=== PATIENT | female | born 1985 | race Caucasian/White ===

== ENCOUNTER 2016-10-03 14:35 | Inpatient (IN) | payer BC ==
--- NOTE | ~2016-10-03 | DS ---
Unit #: [id number] #: [id number] Patient: SATINDER ARGUETA [id number] [facility] [address] [place] [address] [id number] MR#: [id number] NAME: SATINDER ARGUETA. ROOM: [facility] Age: 30 Sex: F Admission Date: 10/03/2016 : 1985 Discharge Date: 10/08/2016 Attending Physician: Anderson Mccoy M.D. Primary Care Physician: Primary Care Physician No DISCHARGE SUMMARY REASON FOR ADMISSION Suicidal ideation. DIAGNOSTIC STUDIES LABORATORY RESULTS: Unremarkable. HOSPITAL COURSE The patient was admitted to inpatient unit on 10/03/2016 and discharged on 10/08/2016. The patient was treated on the inpatient unit with group therapy, individual therapy, and medication management. The patient responded well with the above modalities of treatment and following medications. DISCHARGE MEDICATIONS Celexa 20 mg daily for depression, Vistaril 25 mg t.i.d. for anxiety, and Desyrel 50 mg at bedtime for sleep. DISCHARGE DIAGNOSES Psychiatric: 1. Major depressive disorder, recurrent, F33.2. 2. Alcohol use disorder, mild, F10.20. Secondary diagnosis: Deferred. Medical diagnosis: None. Stressors: Psychosocial stressors. DISCHARGE INSTRUCTIONS The patient is to follow up in outpatient clinic as per social services aide. CONDITION ON DISCHARGE The patient was pleasant and cooperative. Denied any psychotic symptom or any suicidal ideation. PROGNOSIS Guarded. DIET AND ACTIVITY As tolerated. Dictated by... Anderson Mccoy M.D. Unit #: [id number] #: [id number] Patient: SATINDER ARGUETA SZC/modl TD: 10/08/2016 17:41 JOB #: [id number] DISCHARGE SUMMARY Page 1 of 1 X Anderson Mccoy MD X DISCHARGE SUMMARY
--- NOTE | ~2016-10-03 | PN ---
Unit #: [id number] #: [id number] Patient: SATINDER RAI [id number] [facility] [address] [place] [address] [id number] MR#: [id number] NAME: SATINDER RAI. ROOM: [facility] Age: 30 Sex: F Admission Date: 10/03/2016 : 1985 Attending Physician: Anderson Mccoy M.D. Admitting Physician: Anderson Mccoy M.D. Primary Care Physician: Primary Care Physician Vivien PALMER NOTES DATE 10/04/2016 DISCUSSION Satinder Rai is a 30-year-old female, seen on 10/04/2016. The patient interviewed, chart reviewed, and obtained information from the nursing staff. The patient was tearful, sad, dysphoric, anxious, nervous and the patient reported not sleeping, withdrawn, isolative, guarded. REVIEW OF SYSTEMS Complete review of systems unremarkable. MENTAL STATUS EXAMINATION General appearance: Patient dressed casually. Attention span and concentration, fair. Oriented to place and person. Mood and affect, sad, depressed. Speech, monotone. Thought process, concrete. The patient denied any thoughts of harming self or others but guarded. Recent and remote memory, poor. Insight and judgment, poor. DIAGNOSIS Major depressive disorder, recurrent. ASSESSMENT/PLAN Advised to continue with the current medication and therapeutic protocol and if needed consider further adjustment of medication. Dictated by... Ivan Ramos/bret TD: 10/06/2016 07:55 JOB #: [id number] Unit #: [id number] #: [id number] Patient: SATINDER RAI JOHN PALMER NOTES Page 1 of 1 X Anderson Mccoy MD NOTE
--- NOTE | ~2016-10-03 | PN ---
Unit #: [id number] #: [id number] Patient: SATINDER RAI [id number] [facility] [address] [place] [address] [id number] I MR#: [id number] NAME: SATINDER RAI. ROOM: P257 Age: 30 Sex: F Admission Date: 10/03/2016 : 1985 Attending Physician: Anderson Mccoy M.D. Admitting Physician: Anderson Mccoy M.D. Primary Care Physician: Primary Care Physician Vivien LOPEZ PROGRESS NOTES DATE 10/06/2016 DISCUSSION Satinder Rai is a 30-year-old female, seen on 10/06/2016. The patient interviewed, chart reviewed, and obtained information from the nursing staff. The patient was compliant and cooperative. Reports mood is getting better, decrease in anxiety. VITAL SIGNS: Stable, 98.4, 109, 18, and 113/78. The patient is still having problem with the mood lability, but able to contract for safety. REVIEW OF SYSTEMS Complete review of systems unremarkable. MENTAL STATUS EXAMINATION General appearance: Patient dressed casually. Attention span and concentration, fair. Oriented to place and person. Mood and affect, sad and depressed. Speech, monotone. Thought process, concrete. The patient denied any thoughts of harming self or others but sad and depressed, withdrawn, isolative. Recent and remote memory, poor. Insight and judgment, poor. DIAGNOSIS Major depressive disorder, recurrent. ASSESSMENT/PLAN Advised to continue with the current medication and therapeutic protocol and if needed consider further adjustment of medication. Dictated by... Ivan Ramos/bret TD: 10/08/2016 08:59 JOB #: [id number] Unit #: [id number] #: [id number] Patient: SATINDER RAI PEASANDY PROGRESS NOTES Page 1 of 1 X Anderson Mccoy MD PROGRESS NOTE
--- NOTE | ~2016-10-03 | PN ---
Unit #: [id number] #: [id number] Patient: SATINDER RAI [id number] [facility] [address] [place] [address] [id number] I MR#: [id number] NAME: SATINDER RAI. ROOM: [facility]7 Age: 30 Sex: F Admission Date: 10/03/2016 : 1985 Attending Physician: Anderson Mccoy M.D. Admitting Physician: Anderson Mccoy M.D. Primary Care Physician: Primary Care Physician Vivien LOPEZ PROGRESS NOTES DATE OF SERVICE 10/07/2016 DISCUSSION Satinder Rai is a 30-year-old female seen on 10/07/2016. The patient interviewed, chart reviewed. Obtained information from nursing staff. The patient was compliant, cooperative. Mood sad, dysphoric. Reports making progress. Denied any thoughts of harming self or others. Complete Review of Systems: Unremarkable. MENTAL STATUS EXAMINATION General Appearance: The patient dressed casually. Attention span, concentration: Fair. Oriented in place and person. Mood and affect brighter. Speech: Regular rate. Thought process: Goal-directed. The patient denied any thoughts of harming self or others or any psychotic symptom. Recent and remote memory: Poor. Insight and judgment: Poor. DIAGNOSIS Mood disorder not otherwise specified. ASSESSMENT/PLAN Advised to continue with current medication and therapeutic protocol. If needed, consider further adjustment of medication. Dictated by... Ivan Ramos/rigoberto TD: 10/09/2016 09:11 JOB #: [id number] Unit #: [id number] #: [id number] Patient: SATINDER RAI PROGRESS NOTES Page 1 of 1 X Anderson Mccoy MD PROGRESS NOTE
--- NOTE | ~2016-10-03 | HP ---
Unit #: [id number] #: [id number] Patient: SATINDER ARGUETA N [id number] [place] [address] [id number] MR#: [id number] NAME: SATINDER ARGUETA. ROOM: [facility]7 Age: 30 Sex: F Admission Date: 10/03/2016 : 1985 Attending Physician: Anderson Mccoy M.D. Admitting Physician: Anderson Mccoy M.D. Primary Care Physician: Primary Care Physician No HISTORY AND PHYSICAL HISTORY OF PRESENT ILLNESS Satinder is a 30-year-old female admitted to [address] [place] [address] for depression and attempted overdose on Tylenol and alcohol. PAST MEDICAL HISTORY None. PAST SURGICAL HISTORY None. SOCIAL HISTORY Smokes half pack of cigarettes daily. Occasional social alcohol use. No illegal drug use. She is currently single and living with her son. FAMILY HISTORY Noncontributory. REVIEW OF SYSTEMS CONSTITUTIONAL: No fever or chills. HEENT: Denies any sore throat, ear pain or runny nose. CARDIOVASCULAR: Denies chest pain, irregular heart rhythm or palpitations. CHEST: Denies shortness of breath or cough. No hemoptysis. GASTROINTESTINAL: Denies nausea, vomiting, diarrhea or chronic constipation. ENDOCRINE: Denies history of increased thirst or urination. No recent significant weight loss or gain. GENITOURINARY: Denies dysuria, frequency, or hematuria. SKIN: Denies any rashes. HEMATOLOGIC: Denies history of increased bleeding or bruising. MUSCULOSKELETAL: Denies any hot, swollen joints. No generalized muscle pain. NEUROLOGIC: Denies problems with vision or speech. No frequent, severe headaches. No numbness, tingling or weakness in any extremities. Denies loss of bladder or bowel control. CURRENT MEDICATIONS None. ALLERGIES None. PHYSICAL EXAMINATION GENERAL: Alert, oriented, no acute distress. Unit #: [id number] #: [id number] Patient: SATINDER ARGUETA VITAL SIGNS: Blood pressure 140/80, heart rate 95, respirations 19, and temperature 98.0. SKIN: Warm, dry. No rashes or lesions, track woody, cuts, etc. HEENT: Normocephalic. TMs not viewed. Oronasal passages clear. Conjunctivae clear. PERRLA. EOM is intact. NECK: No lymphadenopathy or thyromegaly. HEART: Regular rate and rhythm. No murmur, gallop, or rub. LUNGS: Clear to auscultation bilaterally. ABDOMEN: Soft, nontender without palpable masses or hepatosplenomegaly. : Not assessed. EXTREMITIES: No evidence of cyanosis, clubbing, or edema. Moves all extremities independently without obvious deficit. NEUROLOGICAL: Grossly within normal limits. Cranial Nerves: II: Visual mendez are intact. III, IV AND : Extraocular movements are intact. Pupils are equal, round and reactive to light. V: Facial sensation is grossly normal. VII: Facial movements and expression are normal. VIII: Auditory acuity grossly intact. IX, X: Uvula is midline. Phonation is normal. XI: Patient shrugs shoulders and turns head normally. XII: Tongue protrudes in the midline. Sensory and Motor Function: Sensory and motor sensation is grossly normal. Motor: moves all extremities well. Coordination: Gait is normal. Deep Tendon Reflexes: Intact. IMPRESSION Psychiatric admission. RECOMMENDATIONS PSYCHIATRIC: Per psychiatrist. MEDICAL: No contraindication to participating in this facility's activities. MEDICAL PROGNOSIS Good. MEDICAL CONDITION Stable. Dictated by... Mauricio Andres TD: 10/04/2016 13:22 JOB #: [id number] Unit #: [id number] #: [id number] Patient: SATINDER ARGUETA HISTORY AND PHYSICAL Page 1 of 1 X MARGIE MERRITT APRN X HISTORY AND PHYSICAL
--- NOTE | ~2016-10-03 | PA ---
Unit #: [id number] #: [id number] Patient: SATINDER RAI [id number] [facility] [address] [place] [address] [id number] I MR#: [id number] NAME: SATINDER RAI. ROOM: [facility] Age: 30 Sex: F Admission Date: 10/03/2016 : 1985 Date of Assessment: Attending Physician: Anderson Mccoy M.D. Admitting Physician: Anderson Mccoy M.D. PSYCHIATRIC ASSESSMENT INFORMANT The patient reliability, fair; chart reliability, good. CHIEF COMPLAINT Suicidal ideation. HISTORY OF PRESENT ILLNESS Ms. Satinder Rai is a 30-year-old female, seen on 2-Violeta with the above-mentioned complaint. The patient reported feeling sad, depressed, anxious. Reported multiple stressor, recent suicide attempt. The patient attempted crying, anxious, nervous. The patient took 30 Tylenol mixed with 32-ounce whisky. The patient reported relationship and refused to answer assessment questions, but sad, depressed, anxious. The patient denied use of other drugs. Urine drug screen was negative. The patient still feeling sad, depressed, having suicidal ideation. Denied any psychotic symptom. Needing inpatient admission at this time for psychiatric stabilization. PAST PSYCHIATRIC HISTORY Unremarkable for any history of previous treatment. FAMILY HISTORY/SOCIAL HISTORY The patient has a poor support system. No history of any abuse. MEDICAL HISTORY Unremarkable for any chronic medical condition except for recent suicide attempt as mentioned above. MEDICATION HISTORY None. ALLERGIES No known drug allergies. SUBSTANCE ABUSE HISTORY Recent use of alcohol, but denied any chronic use. No history of any addiction as per the patient. REVIEW OF SYSTEMS HEENT: Eyes, clear. Ears, nose, mouth, and throat; clear. CARDIOVASCULAR: Unremarkable. RESPIRATORY: Unremarkable. GI: Unremarkable. Unit #: [id number] #: [id number] Patient: SATINDER RAI : Unremarkable. SKIN: Unremarkable. LYMPH NODE: Unremarkable. NEUROLOGIC: Unremarkable. ENDOCRINE: Unremarkable. HEMATOLOGIC: Unremarkable. ALLERGIC/IMMUNOLOGIC: Unremarkable. MUSCULOSKELETAL: Muscle strength and tone, no atrophy or abnormal movement. Gait normal. MENTAL STATUS EXAMINATION CONSTITUTIONAL: Measurement of vital signs; temperature 98.7, pulse 123, respirations 18, and blood pressure 122/78, height 5 feet 4 inches, weight 150 pounds. GENERAL APPEARANCE: The patient dressed casually. The patient did not show any facial deformity. MUSCULOSKELETAL: Please see above. PSYCHIATRIC EXAMINATION Description of speech; regular rate, normal volume, normal articulation, coherent. Description of thought process, goal directed. Description of association, intact. Description of abnormal psychotic thinking; the patient denied any hallucination or delusions, but mood lability, sad, depressed, anxious suicidal ideation, recent suicide attempt. Description of the patient's judgment, concerning everyday activity, poor. Social situation, poor. Concerning psychiatric condition, poor. Complete mental status examination; oriented in time, place, and person. Recent and remote memory, fair. Attention span and concentration, fair. Language, able to name object and repeat phrases. Fund of knowledge, aware of current event, passive vocabulary intact. Mood and affect, sad and dysphoric. Insight and judgment, fair to poor. ASSETS AND LIABILITIES Assets; the patient is articulate and able to take care of her ADL. Liability, history of depression. ADMITTING DIAGNOSES Psychiatric: Major depressive disorder, recurrent, severe, F33.2; alcohol use disorder, mild, F10.20. Secondary diagnosis: Deferred. Medical diagnosis: None. Stressors: Psychosocial stressors. PSYCHIATRIC PLAN AND TREATMENT GOAL AND DISCHARGE PLAN 1. Advised to admit the patient on the inpatient unit. Provide safe, supportive, and structured environment. 2. Ordered labs; CBC, CMP, UA, UDS, and test. 3. SC1 precaution, VTS monitoring. 4. The patient to attend all the programing on the inpatient unit group therapy, individual therapy, family session and advised Vistaril, Celexa, and Desyrel for anxiety depression and sleep if needed consider further adjustment of medication. 5. Treatment goal; to attain euthymic mood, gain insight into her problem, and learn coping skills. Unit #: [id number] #: [id number] Patient: SATINDER RAI 6. Discharge plan; plan to stabilize the patient and consider followup in outpatient program. ESTIMATED LENGTH OF STAY 7 to 10 days. Dictated by..Emilia Mccoy M.D. GEOVANI/jeremiah TD: 10/04/2016 21:46 JOB #: [id number] PSYCHIATRIC ASSESSMENT Page 1 of 1 X Anderson Mccoy MD PSYCHIATRIC ASSESSMENT
--- NOTE | ~2016-10-03 | CO ---
Unit #: [id number] #: [id number] Patient: SATINDER ARGUETA N [id number] [place] [address] [id number] MR#: [id number] NAME: SATINDER ARGUETA ROOM: P257 Age: 31 Sex: F Admission Date: 10/03/2016 : 1985 Attending Physician: Anderson Mccoy M.D. Primary Care Physician: Primary Care Physician No Consultation Date: 10/05/2016 CONSULTATION REPORT HISTORY OF PRESENT ILLNESS Satinder has complains of left-sided ear pain for the past 3 weeks on and off. Yesterday, it became more painful and consistent and she is also having pain when she touches. No sore throat. No cough. No fever. No other complaints. PHYSICAL EXAMINATION CARDIAC: Regular rate and rhythm. No murmurs, gallops, or rubs. RESPIRATORY: Clear to auscultation bilaterally. EARS: Left external canal erythema and tenderness with palpation. No jordan erythema or swelling. ASSESSMENT AND PLAN Otitis externa. We will begin Ciprodex and Claritin. Please notify if symptoms are unresolved. Dictated by... Mauricio Andres/jeremiah TD: 10/17/2016 02:51 JOB #: [id number] CONSULTATION REPORT Page 1 of 1 X MARGIE MERRITT APRN X CONSULTATION REPORT
--- NOTE | ~2016-10-03 | PN ---
Unit #: [id number] #: [id number] Patient: SATINDER RAI [id number] [facility] [address] [place] [address] [id number] MR#: [id number] NAME: SATINDER RAI. ROOM: P257 Age: 30 Sex: F Admission Date: 10/03/2016 : 1985 Attending Physician: Anderson Mccoy M.D. Admitting Physician: Anderson Mccoy M.D. Primary Care Physician: Primary Care Physician Vivien LOPEZ PROGRESS NOTES DATE 10/05/2016 DISCUSSION Satinder Rai is a 30-year-old female seen on 10/05/2016. Patient interviewed, chart reviewed, obtained information from the nursing staff. The patient is compliant and cooperative. Mood sad and dysphoric. Flat affect. Guarded. Patient was able to maintain safe behavior. Sad, depressed mood. Compliant with medication. Complete review of systems unremarkable. MENTAL STATUS EXAMINATION General appearance: Patient is dressed casually. Attention span and concentration fair. Oriented in place and person. Mood and affect sad and depressed, flat affect. Speech monotone. Thought processes concrete. Withdrawn, isolative, guarded. SI. Denied any homicidal ideation. Recent and remote memory poor. Insight and judgement poor. DIAGNOSIS Mood disorder NOS. ASSESSMENT AND PLAN Advise to continue with current combination of Celexa and Desyrel. Continue to consider further adjustment of medication. Dictated by... Ivan Ramos/jacinto TD: 10/07/2016 08:46 JOB #: [id number] Unit #: [id number] #: [id number] Patient: SATINDER RAI PEASANDY PROGRESS NOTES Page 1 of 1 X Anderson Mccoy MD PROGRESS NOTE
[2016-10-04 13:22] LABS: THYROID STIMULATING HORMONE 0.79 uIU/ml (0.34-5.60)
[2016-10-04 13:33] LABS: FREE THYROXIN (T4) 0.71 ng/dL (0.58-1.64)
[2016-10-04 15:22] LABS: URINE APPEARANCE CLEAR; URINE BILIRUBIN NEG (NEG); URINE BLOOD NEG (NEG); URINE COLOR YELLOW; URINE GLUCOSE >1000 MG/DL (NEG); URINE KETONE NEG (NEG); URINE LEUKOCYTE ESTERASE NEG (NEG); URINE NITRATE NEG (NEG); URINE PH 5.5 (5-8); URINE PROTEIN NEG (NEG); URINE SPECIFIC GRAVITY 1.013 (1.003-1.035); URINE UROBILINOGEN 0.2 MG/DL (NEG)
== END 2016-10-08 16:30 | disposition home or self-care (01) | DRG 885 ==
LOC: P2L 14:35
PROVIDERS: Psychiatry & Neurology Psychiatry
DX: F33.2 Major depressive disorder, recurrent severe without psychotic features (principal); R45.851 Suicidal ideations; F10.10 Alcohol abuse, uncomplicated; F17.210 Nicotine dependence, cigarettes, uncomplicated
CPT/HCPCS: 81003; 84439; 84443; 84703